=== PATIENT | female | born 1940 | race Caucasian/White ===

== ENCOUNTER 2017-05-07 11:43 | Emergency (ER) | payer MEDICARE ==
[~2017-05-07] VITALS: Ht 157.5 cm; Wt 69.0 kg
[~2017-05-07 11:43] MED LIST: FEXO180T PO; METO50TA OR; PREMPRO; SIMV40TA OR
[2017-05-07 11:46] VITALS: BP 125/69; PULSE 96; RESP 20; TEMP 98.4; O2SAT 96
[2017-05-07] MEDS ORDERED: SIMV40TA PO (12:27)
[2017-05-07] MEDS ORDERED: [UNRECOGNIZED DRUG - OTHER] PO (12:27)
[2017-05-07] MEDS ORDERED: IBUP400T20 PO (12:27)
--- NOTE | 2017-05-07 13:05 | PD ---
HPI Chief Complaint: Injury Time Seen by Provider: 12:20 Travel History International Travel<30 days: No Contact w/Intl Traveler<30days: No Traveled to known affect area: No History of Present Illness HPI 76-year-old female with chief complaint of right knee pain 7 days. Patient reports while walking she stepped down from a curb slightly twisting the right knee causing immediate pain to the lateral aspect. Patient reports the pain is worse with weightbearing, flexion of the knee, relieved with rest. The pain is aching in nature, nonradiating, severity 4/10. She denies numbness/weakness/ tingling of the extremities. PFSH Past Medical History Narrative Medical Significant for hypertension and hyperlipidemia Developmental Delay: No Menopausal: Yes Past Surgical History Cholecystectomy: No Social History Alcohol Use: No Tobacco Use: No Substance Use: No Allergies-Medications (Allergen,Severity, Reaction): Coded Allergies: No Known Allergies (Verified , 11/09/10) Reported Meds & Prescriptions Reported Meds & Active Scripts Active Reported Ibuprofen 400 Mg Tab 400 Mg PO BID PRN [lorastan] 1 Tab PO DAILY Simvastatin 40 Mg Tab 40 Mg PO HS Review of Systems Except as stated in HPI: all other systems reviewed are Neg General / Constitutional: No: Fever Eyes: No: Visual changes HENT: No: Headaches Cardiovascular: No: Chest Pain or Discomfort Respiratory: No: Shortness of Breath Gastrointestinal: No: Abdominal Pain Physical Exam Narrative GENERAL: Well-nourished, well-developed patient. SKIN: Focused skin assessment warm/dry. HEAD: Normocephalic. EYES: No scleral icterus. No injection or drainage. NECK: Supple, trachea midline. No JVD or lymphadenopathy. CARDIOVASCULAR: Regular rate and rhythm without murmurs, gallops, or rubs. RESPIRATORY: Breath sounds equal bilaterally. No accessory muscle use. GASTROINTESTINAL: Abdomen soft, non-tender, nondistended. MUSCULOSKELETAL: No cyanosis, or edema. Right knee: Joint is stable. No effusion. TTP lateral aspect. Pain to the lateral aspect with varus stress. 2 + distal pulses. Normal sensation. BACK: Nontender without obvious deformity. No CVA tenderness. Data Data Last Documented VS Vital Signs Date Time Temp Pulse Resp B/P Pulse Ox O2 Delivery O2 Flow Rate FiO2 05/07/17 11:46 98.4 96 20 125/69 96 Orders Knee, Complete (4vws) (05/07/17 ) [facility] Medical Decision Making Medical Screen Exam Complete: Yes Emergency Medical Condition: Yes Differential Diagnosis Knee sprain versus strain versus fracture Narrative Course 76-year-old female with chief complaint of right knee pain status post twisting injury 7 days ago. Patient reports pain to the lateral aspect of the knee. Her physical exam is reassuring. She has mild tenderness to the lateral aspect of the joint. The joint is stable. The extremity is neurovascular intact. X- ray pending X-rays negative for fracture. Patient has knee immobilizing splint she was instructed to continue wearing it. She'll be given a shot of Toradol. Patient requesting prescription for Motrin 800. She has an established orthopedic doctor who she was advised to follow-up with. Patient agrees to plan Diagnosis Primary Impression: Knee LCL sprain Qualified Code: S83.421A - Sprain of lateral collateral ligament of right knee , initial encounter Referrals: Orthopedist Additional Instructions: Take the medication as prescribed. Ice and elevate the extremity. Continue wearing the knee immobilizing splint. Make an appointment for follow-up with orthopedic doctor. Scripts Ibuprofen 800 Mg Lsd256 Mg PO Q8H PRN (Pain/Inflammation) #30 TAB Prov:Belle Klein 05/07/17 Disposition: 01 DISCHARGE HOME Condition: Stable Belle Klein May 07, 2017 13:05
[2017-05-07] MEDS ORDERED: IBUP800T23 PO (13:47)
--- NOTE | 2017-05-07 13:49 | RADRPT ---
EXAM DATE/TIME: 05/07/2017 13:17 [facility] COMPARISON: No previous studies available for comparison. INDICATIONS : Right knee pain after falling off curb. MEDICAL HISTORY : None. SURGICAL HISTORY : None. ENCOUNTER: Initial ACUITY: 1 week PAIN SCORE: 8/10 LOCATION: Right posterior Lateral knee FINDINGS: Four view examination of the right knee demonstrates no evidence of fracture or dislocation. Bony mi neralization is normal. The articular surfaces are intact. The suprapatellar soft tissues have a no rmal configuration. CONCLUSION: No acute disease. Ed Heredia MD on May 07, 2017 at 13:47 Board Certified Radiologist. This report was verified electronically.
[2017-05-07] MEDS ORDERED: KETOROLAC TROMETHAMINE 60 MG/2 ML (IM) VIAL IM ONE (14:00)
== END 2017-05-07 13:59 | disposition home or self-care (01) ==
LOC: PHED 11:43
DX: S83.421A Sprain of lateral collateral ligament of right knee, initial encounter (principal); I10 Essential (primary) hypertension; E78.5 Hyperlipidemia, unspecified; X50.1XXA Overexertion from prolonged static or awkward postures, initial encounter; Y92.89 Other specified places as the place of occurrence of the external cause
CPT/HCPCS: 73564; 96372; 99284; J1885